=== PATIENT | female | born 1935 | race Caucasian/White ===

== ENCOUNTER 2018-05-19 13:28 | Outpatient (CLI) | payer MEDICARE ==
--- NOTE | 2018-05-19 19:48 | MRI ---
MRI LUMBAR SPINE WITHOUT CONTRAST: 05/19/18 HISTORY: Lumbar radiculopathy. Pain radiates down the left hip and left leg. COMPARISON: None. TECHNIQUE: MRI of lumbar spine is performed without intravenous gadolinium administration. Multisequential, mult iplanar imaging is performed. FINDINGS: Appropriate T1 marrow signal intensity lumbar vertebrae. Lumbar spine vertebral body height is mainta ined. There is no fracture. No significant STIR hyperintensity to suggest edema or ligamentous injury . 5.2 mm of anterolisthesis of L4 upon L5. Symmetric signal intensity of the psoas muscles. The left kidney is somewhat diminutive and slightly rotated. The conus medullaris terminates at the T12-L1 disc space level. T12-L1: Adequate disc hydration. No significant central canal stenosis. Neural foramina are patent. L1-L2: Adequate disc hydration. No significant central canal stenosis. Neural foramina are patent. L2-L3: Adequate disc hydration. No significant central canal stenosis. Neural foramina are patent. L3-L4: Adequate disc hydration. No significant central canal stenosis or significant neural foramina narrowing. L4-L5: Adequate disc hydration. There is ligamentum flavum thickening and facet hypertrophy. Mild obdulia tral canal stenosis. Mild right foramina narrowing. The left neural foramen is patent. L5-S1: Adequate disc hydration. No significant posterior disc abnormality. There is a T2 and STIR hyp erintense lesion along the midline and right subarticular region. This STIR hyperintensity is compati ble with annular fissure and abuts the traversing right S1 nerve root. No significant impingement. No significant central canal stenosis. Mild bilateral foraminal narrowing. There is evidence of mild bi lateral facet hypertrophy. IMPRESSION: Degenerative changes of the lumbar spine as above. POS: [facility]
== END 2018-05-19 13:29 | disposition home or self-care (01) ==
LOC: BICMRI 13:28
PROVIDERS: ATTEND Neurological Surgery
DX: M47.26 Other spondylosis with radiculopathy, lumbar region (principal)
CPT/HCPCS: 72148

== ENCOUNTER → 2018-05-21 | Day surgery (SDC) | payer MEDICARE, BC ==
--- NOTE | 2018-05-21 11:44 | MMO ---
STEREOTACTIC-GUIDED BIOPSY LEFT BREAST MICROCALCIFICATIONS SURGICAL SPECIMEN MAMMOGRAPHY LEFT DIAGNOSTIC MAMMOGRAM POST BIOPSY: HISTORY: Abnormal mammogram. Microcalcifications. FINDINGS: After explaining the procedure and answering all questions, the microcalcifications at the superior l ateral aspect of the left breast were visualized. Sterile technique, buffered local anesthesia, ster eotactic guidance, and a lateral approach were used to carefully advance an 18-gauge vacuum-assisted needle to the microcalcification cluster. A total of 7 core specimens, 10-gauge vacuum-assisted, wer e obtained. Surgical specimen mammography shows microcalcifications in the specimen. Localization c lip was placed in the biopsy bed under stereotactic control. The needle was removed. Postprocedure imaging shows the clip to be in good position with absence of the microcalcifications. The patient t olerated the procedure well and was eventually dismissed in good condition. IMPRESSION: Technically successful stereotactic-guided biopsy left breast microcalcifications. Pathology is pend ing. POS: [facility]
== END ==
LOC: MAMMO 08:21
PROVIDERS: ATTEND Nurse Practitioner
PROC: 0HBU3ZX Excision of Left Breast, Percutaneous Approach, Diagnostic (ICD-10-PCS; principal; 2018-05-21)
DX: R92.0 Mammographic microcalcification found on diagnostic imaging of breast (principal)
CPT/HCPCS: 19081; 76098; 88305